=== PATIENT | female | born 1985 | race Hispanic/Latino ===

== ENCOUNTER 2017-11-29 04:10 | Emergency (ER) | payer BC, OTHER ==
[2017-11-29 04:25] VITALS: BP 127/82; PULSE 99; RESP 15; TEMP 99; O2SAT 97
--- NOTE | 2017-11-29 04:43 | ED PDOC ---
HPI: Abdomen Time Seen by Provider: 11/29/17 04:30 Chief Complaint (Nursing): GI Problem Chief Complaint (Provider): constipation History Per: Patient History/Exam Limitations: no limitations Onset/Duration Of Symptoms: Days (2) Current Symptoms Are (Timing): Still Present Additional Complaint(s): 32 y/o female presents for evaluation of constipation x 2 days. Patient states she usually has bowel movements every day, states since yesterday she feels the urge that she has to have a bowel movement but then has too much pain in rectal area to push. Patient tried Ducolax and a stool softener at 20:30 last night and ate prunes without success. DEnies fever, nausea/vomiting, abdominal pain, recent travel, changes in diet. Past Medical History Reviewed: Historical Data, Nursing Documentation, Vital Signs Vital Signs: Last Vital Signs Temp 99 F 11/29/17 04:23 Pulse 99 H 11/29/17 04:23 Resp 15 11/29/17 04:23 BP 127/82 11/29/17 04:23 Pulse Ox 97 11/29/17 05:18 - Medical History PMH: No Chronic Diseases - Surgical History Surgical History: No Surg Hx - Family History Family History: States: No Known Family Hx - Home Medications Home Medications: Ambulatory Orders Medication Instructions Recorded Polyethylene Glycol 3350 [Miralax] 17 gm PO DAILY PRN #5 powd.pack 11/29/17 - Allergies Allergies/Adverse Reactions: Allergies Allergy/AdvReac Type Severity Reaction Status Date / Time amoxicillin Allergy RASH Verified 11/29/17 04:23 Penicillins Allergy RASH Verified 11/29/17 04:23 Review of Systems ROS Statement: Except As Marked, All Systems Reviewed And Found Negative Gastrointestinal: Positive for: Abdominal Pain, Constipation Physical Exam - Reviewed Nursing Documentation Reviewed: Yes Vital Signs Reviewed: Yes - Physical Exam Appears: Positive for: Well, Non-toxic, Uncomfortable Head Exam: Positive for: ATRAUMATIC, NORMAL INSPECTION, NORMOCEPHALIC Cardiovascular/Chest: Positive for: Regular Rate, Rhythm Respiratory: Positive for: Normal Breath Sounds Gastrointestinal/Abdominal: Positive for: Bowel Sounds, Soft, Tenderness (lower abdominal discomfort) Back: Positive for: Normal Inspection Extremity: Positive for: Normal ROM Neurologic/Psych: Positive for: Alert, Oriented (x3) - ECG O2 Sat by Pulse Oximetry: 97 - Other Rad obstructive series X-Ray: Viewed By Me X-Ray Interpretation: moderate stool throughout colon - Progress ED Course And Treament: obstructive series xray Patient given fleet enema in ED with large bowel movement shortly after Patient reports improvement Patient educated on findings, discharged with rx Miralax Advised fluids, high fiber diet Follow up PMD 2-3 days REturn precautions given Disposition - Clinical Impression Clinical Impression: Constipation - Patient ED Disposition Is Patient to be Admitted: No Counseled Patient/Family Regarding: Studies Performed, Diagnosis, Need For Followup, Rx Given - Disposition Disposition: Routine/Home Disposition Time: 05:59 Condition: IMPROVED Prescriptions: Polyethylene Glycol 3350 [Miralax] 17 gm PO DAILY PRN #5 powd.pack PRN Reason: Constipation Instructions: Constipation in Adults Forms: [facility] (Lao)
[2017-11-29] MEDS ORDERED: Hydrocortisone 2.5% (Rectal) CREAM PR STA (05:22)
--- NOTE | 2017-11-29 12:56 | RAD ---
Date of service: 11/29/2017 PROCEDURE: Radiographs of the chest and abdomen (obstructive series) HISTORY: constipation COMPARISON: None available. TECHNIQUE: AP radiograph of the chest, with upright and supine radiographs of the abdomen. FINDINGS: CHEST: Heart size appears within normal limits. No focal consolidation, significant pleural effusion, or definite pneumothorax identified.Please note that chest x-ray has limited sensitivity for the detection of pulmonary masses. ABDOMEN AND PELVIS: Nonspecific bowel gas pattern without evidence of obstruction. Moderate to severe constipation. IUD. No acute osseous abnormality is detected. IMPRESSION: Moderate to severe constipation. IUD.
== END 2017-11-29 06:17 | disposition home or self-care (01) ==
LOC: H.ER 04:10
DX: K59.00 Constipation, unspecified (principal); Z88.0 Allergy status to penicillin

== ENCOUNTER 2018-06-21 05:07 | Emergency (ER) | payer BC ==
[2018-06-21] MEDS ORDERED: Sodium Chloride 0.9% 1,000 ML IV STA ×2 (06:16→08:19)
--- NOTE | 2018-06-21 06:32 | ED PDOC ---
Syncope/Near Syncope/Dizziness Time Seen by Provider: 06/21/18 05:56 Chief Complaint (Nursing): Dizziness/Lightheaded Chief Complaint (Provider): Dizziness/Lightheaded History Per: Patient History/Exam Limitations: no limitations Onset/Duration Of Symptoms: Hrs (x 1) Current Symptoms Are (Timing): Still Present Seizure Or Post-ictal Symptoms: None Severity: Moderate Additional Complaint(s): 33 year old female with DM (type I) and recent diagnosis of vertigo presents to the ED for evaluation of dizziness, onset 1 hour prior to arrival. Patient reports an extreme bout of vertigo and describes intense room spinning causing an anxiety attack. She took 1/2 of her .25 mg Xanax with some relief. Currently, she reports nausea, dizziness, anxiety and dry mouth. Patient was started on prednisone 4 days ago by an ENT doctor which she has been taking irregularly due to concern about sugar levels and side effects. Denies vomiting, fever, chest pain and headache. PMD: none provided Past Medical History Reviewed: Historical Data, Nursing Documentation, Vital Signs Vital Signs: Last Vital Signs Temp 98.4 F 06/21/18 05:22 Pulse 106 H 06/21/18 05:22 Resp 16 06/21/18 05:22 BP 121/72 06/21/18 05:22 Pulse Ox 100 06/21/18 05:22 - Medical History PMH: Diabetes, Migraine Other PMH: vertigo - Surgical History Surgical History: No Surg Hx - Family History Family History: States: Unknown Family Hx - Social History Current smoker - smoking cessation education provided: No Alcohol: None Drugs: Denies - Home Medications Home Medications: Ambulatory Orders Medication Instructions Recorded Polyethylene Glycol 3350 [Miralax] 17 gm PO DAILY PRN #5 powd.pack 11/29/17 Meclizine [Meclizine*] 25 mg PO Q6 #30 tab 06/21/18 Metoclopramide HCl [Reglan] 10 mg PO Q6 #30 tablet 06/21/18 - Allergies Allergies/Adverse Reactions: Allergies Allergy/AdvReac Type Severity Reaction Status Date / Time amoxicillin Allergy RASH Verified 11/29/17 04:23 Penicillins Allergy RASH Verified 11/29/17 04:23 Review of Systems ROS Statement: Except As Marked, All Systems Reviewed And Found Negative Constitutional: Negative for: Fever Cardiovascular: Negative for: Chest Pain Gastrointestinal: Negative for: Vomiting Neurological: Positive for: Dizziness (vertigo). Negative for: Headache Physical Exam - Reviewed Nursing Documentation Reviewed: Yes Vital Signs Reviewed: Yes - Physical Exam Appears: Positive for: Non-toxic, No Acute Distress Head Exam: Positive for: ATRAUMATIC, NORMAL INSPECTION, NORMOCEPHALIC Skin: Positive for: Normal Color, Warm, Dry Eye Exam: Positive for: EOMI, Normal appearance, PERRL Neck: Positive for: Normal, Painless ROM, Supple Cardiovascular/Chest: Positive for: Regular Rate, Rhythm. Negative for: Murmur Respiratory: Positive for: Normal Breath Sounds. Negative for: Respiratory Distress Gastrointestinal/Abdominal: Positive for: Normal Exam, Soft. Negative for: Tenderness Back: Positive for: Normal Inspection. Negative for: L CVA Tenderness, R CVA Tenderness Extremity: Positive for: Normal ROM (x 4). Negative for: Deformity Neurological/Psych: Positive for: Awake, Alert, Normal Tone, Oriented. Negative for: Motor/Sensory Deficits - Laboratory Results Result Diagrams: 06/21/18 06:25 06/21/18 06:25 - ECG O2 Sat by Pulse Oximetry: 100 (RA) Pulse Ox Interpretation: Normal Medical Decision Making Medical Decision Makin:16 Impression: 33 year old female with vertiginous dizziness and nausea Initial Plan: --CBC --CMP --EKG --Urine preg --Urine dip --NS IV 1,000 mls --Reglan 10 mg IVPB --Antivert 25 mg PO --Infectious [place] --Rapid strep 07:00 Patient signed out to Dr. Edwards pending ER workup, re-evaluation and final disposition. Scribe Attestation: Documented by Erika Marcelo, acting as a scribe Kristyn Eagle MD Provider Scribe Attestation: All medical record entries made by the Scribe were at my direction and personally dictated by me. I have reviewed the chart and agree that the record accurately reflects my personal performance of the history, physical exam, medical decision making, and the department course for this patient. I have also personally directed, reviewed, and agree with the discharge instructions and disposition Disposition - Clinical Impression Clinical Impression: Vertigo - Patient ED Disposition Is Patient to be Admitted: Transfer of Care - Disposition Disposition: Transfer of Care Disposition Time: 07:00 Condition: FAIR Additional Instructions: Follow up with ENT and video network engineer for dizziness. Continue to take diabetes medications as prescribed by your primary doctors and monitor blood sugar lev els. Prescriptions: Meclizine [Meclizine*] 25 mg PO Q6 #30 tab Metoclopramide HCl [Reglan] 10 mg PO Q6 #30 tablet Instructions: Dizziness, Nonvertigo, (DC) Forms: [facility] (Indonesian) Print Language: SURINAMESE Patient Signed Over To: Francy Edwards Handoff Comments: pending full ER workup, re-evaluation and final dispo
[2018-06-21 06:33] LABS: BASO # 0.1 K/uL (0.0-0.2); BASO % 0.4 % (0.0-2.0); EOS % 0.2 % (0.0-4.0); HEMOGLOBIN 14.2 g/dL (12.0-16.0); LYMPH # 1.2 K/uL (1.0-4.3); LYMPH % 9.5 % (20.0-40.0); MEAN CELL VOLUME 89.2 fl (81.0-99.0); MEAN CORPUSCULAR HEMOGLOBIN 29.8 pg (27.0-31.0); MEAN CORPUSCULAR HGB CONC 33.4 g/dL (33.0-37.0); MEAN PLATELET VOLUME 7.9 fl (7.2-11.7); MONO # 0.8 K/uL (0.0-0.8); MONO % 6.5 % (0.0-10.0); NEUT # 10.4 K/uL (1.8-7.0); NEUT % 83.4 % (50.0-75.0); NRBC % 0.3 % (0.0-0.0); PLATELET COUNT 322 K/uL (130-400); RBC 4.75 Mil/uL (3.80-5.20); RED CELL DISTRIBUTION WIDTH 12.2 % (11.5-14.5); WHITE BLOOD COUNT 12.4 K/uL (4.8-10.8)
[2018-06-21 07:02] LABS: ALB/GLOB RATIO 1.2 (1.0-2.1); ALBUMIN 4.4 g/dL (3.5-5.0); ALT/SGPT 22 U/L (9-52); AST/SGOT 18 U/L (14-36); BLOOD UREA NITROGEN 16 mg/dl (7-17); CALCIUM 9.5 mg/dL (8.4-10.2); GFR NON-AFRICAN AMERICAN > 60
--- NOTE | 2018-06-21 07:13 | ED PDOC ---
- Laboratory Results Result Diagrams: 06/21/18 06:25 06/21/18 06:25 Lab Results: Total Bilirubin 0.6 mg/dl (0.2-1.3) 06/21/18 06:25 AST 18 U/L (14-36) 06/21/18 06:25 ALT 22 U/L (9-52) 06/21/18 06:25 Alkaline Phosphatase 55 U/L (38-126) 06/21/18 06:25 Total Protein 7.9 G/DL (6.3-8.2) 06/21/18 06:25 Albumin 4.4 g/dL (3.5-5.0) 06/21/18 06:25 Globulin 3.5 gm/dL (2.2-3.9) 06/21/18 06:25 Albumin/Globulin Ratio 1.2 (1.0-2.1) 06/21/18 06:25 - ECG O2 Sat by Pulse Oximetry: 100 (RA) Pulse Ox Interpretation: Normal Medical Decision Making Medical Decision Making: Time: 7:00 Patient was signed out to me by Dr. Eagle pending followup on labs and reevaluation for improvement in vertigo, likely discharge home. - Scribe Attestation: Documented by Liset Gamez, acting as a scribe for Francy Edwards MD. Provider Scribe Attestation: All medical record entries made by the Scribe were at my direction and personally dictated by me. I have reviewed the chart and agree that the record accurately reflects my personal performance of the history, physical exam, medical decision making, and the department course for this patient. I have also personally directed, reviewed, and agree with the discharge instructions and disposition. Disposition - Disposition Forms: [employer] (Sao Tomean)
[2018-06-21 09:24] VITALS: BP 120/58; RESP 18; TEMP 98.5
[2018-06-21 09:57] VITALS: PULSE 88
[2018-06-21 10:00] LABS: BANDS 1 % (0-2); LYMPHOCYTE 6 % (20-50); MONOCYTE 5 % (0-10); NEUTROPHIL 88 % (42-75); TOTAL CELLS COUNTED 100
[2018-06-21 10:01] LABS: PLATELET ESTIMATE NORMAL (NORMAL)
[2018-06-28 21:47] VITALS: O2SAT 100
== END 2018-06-21 09:56 | disposition home or self-care (01) ==
LOC: H.ER 05:07
DX: R55 Syncope and collapse (principal); R42 Dizziness and giddiness; E11.9 Type 2 diabetes mellitus without complications; Z79.899 Other long term (current) drug therapy; Z88.0 Allergy status to penicillin
CPT/HCPCS: 80053; 81025; 82948; 85025; 86308; 87070; 87430; 96361; 96374; 99284; J2765; J7030

== ENCOUNTER 2018-08-07 19:31 | Emergency (ER) | payer BC ==
[2018-08-07 19:59] VITALS: BP 128/73; PULSE 79; RESP 16; TEMP 98.4; O2SAT 98
--- NOTE | 2018-08-07 21:44 | ED PDOC ---
Lower Extremity Pain/Injury Time Seen by Provider: 08/07/18 20:06 Chief Complaint (Nursing): Lower Extremity Problem/Injury Chief Complaint (Provider): Lower Extremity Injury History Per: Patient History/Exam Limitations: no limitations Onset/Duration Of Symptoms: Hrs Additional Complaint(s): 33 year old female accompanied by mother presents to ED with whole body pain sustained from fall in restaurant. Patient slipped on wet floor while coming out of bathroom x3 hours. She fell on knees first and then her chin and maybe her head. Patient does not believe she had LOC since she was able to get up right away but she is still anxious because her whole body aches. Apparently no one witnessed the fall. She is concerned about her neck pain, dizziness although her knee pain and wrist pain has resolved. PMD: in [facility] Past Medical History Reviewed: Historical Data, Nursing Documentation, Vital Signs Vital Signs: Last Vital Signs Temp 98.4 F 08/07/18 19:55 Pulse 79 08/07/18 19:55 Resp 16 08/07/18 19:55 BP 128/73 08/07/18 19:55 Pulse Ox 98 08/07/18 19:55 Primary Care Provider: FAMILY PROVIDER,NO - Medical History PMH: Diabetes, Migraine - Surgical History Surgical History: No Surg Hx - Family History Family History: States: Unknown Family Hx - Home Medications Home Medications: Ambulatory Orders Medication Instructions Recorded Polyethylene Glycol 3350 [Miralax] 17 gm PO DAILY PRN #5 powd.pack 11/29/17 Meclizine [Meclizine*] 25 mg PO Q6 #30 tab 06/21/18 Metoclopramide HCl [Reglan] 10 mg PO Q6 #30 tablet 06/21/18 Ibuprofen [Motrin] 600 mg PO Q6H PRN #20 tab 08/07/18 - Allergies Allergies/Adverse Reactions: Allergies Allergy/AdvReac Type Severity Reaction Status Date / Time amoxicillin Allergy RASH Verified 08/07/18 19:55 Penicillins Allergy RASH Verified 08/07/18 19:55 Review of Systems ROS Statement: Except As Marked, All Systems Reviewed And Found Negative Constitutional: Positive for: Malaise (whole body aches) Musculoskeletal: Positive for: Neck Pain. Negative for: Other (knee and wrist pain resolved) Neurological: Positive for: Dizziness. Negative for: Other (no LOC) Physical Exam - Reviewed Nursing Documentation Reviewed: Yes Vital Signs Reviewed: Yes - Physical Exam Appears: Positive for: Well, No Acute Distress Head Exam: Positive for: ATRAUMATIC, NORMOCEPHALIC Skin: Positive for: Normal Color, Warm, Dry Eye Exam: Positive for: EOMI, Normal appearance, PERRL ENT: Positive for: Normal ENT Inspection Neck: Negative for: Normal (mild neck pain) Cardiovascular/Chest: Positive for: Regular Rate, Rhythm. Negative for: Murmur Respiratory: Positive for: Normal Breath Sounds. Negative for: Respiratory Distress Gastrointestinal/Abdominal: Positive for: Normal Exam, Soft. Negative for: Tenderness Back: Positive for: Normal Inspection. Negative for: L CVA Tenderness, R CVA Tenderness, Vertebral Tenderness Extremity: Positive for: Normal ROM. 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 Negative for: Motor/Sensory Deficits, Facial Droop - ECG O2 Sat by Pulse Oximetry: 98 (RA) Pulse Ox Interpretation: Normal Medical Decision Making Medical Decision Making: Time: 2109 Initial Impression: sp trip and fall with dizziness rule out intracranial bleed Initial Plan: --CT (Head, Cervical Spine --Flexeril 10 mg PO --Motrin [address] Head without IV contrast FINDINGS: BRAIN: No acute intraparenchymal hemorrhage. No mass lesion. No CT evidence for acute territorial infarct. No midline shift or extra-axial collections. VENTRICLES: No hydrocephalus. ORBITS: The orbits are unremarkable. SINUSES AND MASTOIDS: The paranasal sinuses and mastoid air cells are clear. BONES: No fracture. SOFT TISSUES: Unremarkable. IMPRESSION: No acute intracranial abnormality. 2133 CT Cervical Spine without IV contrast FINDINGS: ALIGNMENT: Bony alignment is anatomic. DEGENERATIVE CHANGES: No significant canal stenosis or neural foraminal narrowing evident. SOFT TISSUES: The prevertebral soft tissues are within normal limits. BONES: A subtle oblique hairline fracture traverses the base of the odontoid process seen in the sagittal reconstructed images; specifically image 47/108. IMPRESSION: A subtle oblique hairline fracture traverses the base of the odontoid process as described above. 2139 Call to neurosurgery 2199 Dr Jc called back, states he is not sure he appreciates that fracture but regardless treatment is the same. hard neck collar and outpt follow up with their office within one week 25[address] of CT scan given to pt as well as per patient request pt reevaluated, neurologically intact. stable gait. c collar placed. Scribe Attestation: Documented by Michael Farmer acting as a scribe for Gillian Emanuel MD. Provider Scribe Attestation: All medical record entries made by the Scribe were at my direction and personally dictated by me. I have reviewed the chart and agree that the record accurately reflects my personal performance of the history, physical exam, medical decision making, and the department course for this patient. I have also personally directed, reviewed, and agree with the discharge instructions and disposition. Disposition - Clinical Impression Clinical Impression: Neck pain, Fall - Patient ED Disposition Is Patient to be Admitted: No Counseled Patient/Family Regarding: Studies Performed, Diagnosis, Need For Followup - Disposition Referrals: [employer] [facility] [Outside] Juan Jc MD [Staff Provider] - Disposition: Routine/Home Disposition Time: 22:15 Condition: IMPROVED Additional Instructions: follow up with neurosurgeon within one week take motrin as needed for pain Prescriptions: Ibuprofen [Motrin] 600 mg PO Q6H PRN #20 tab PRN Reason: Pain, Moderate (4-7) Instructions: Neck Pain, Getting Up From a Fall, Cervical Immobilizers Forms: [employer] (Greek), [facility] ED School/Work Excuse
--- NOTE | 2018-08-08 12:12 | CT ---
Date of service: 08/07/2018 PROCEDURE: CT HEAD WITHOUT CONTRAST. HISTORY: headache, fall COMPARISON: None available. TECHNIQUE: Axial computed tomography images were obtained through the head/brain without intravenous contrast. Supplemental Coronal and Sagittal projections created and reviewed. Radiation dose: Total exam DLP = 813.33 mGy-cm. This CT exam was performed using one or more of the following dose reduction techniques: Automated exposure control, adjustment of the mA and/or kV according to patient size, and/or use of iterative reconstruction technique. FINDINGS: HEMORRHAGE: No intracranial hemorrhage. BRAIN: No mass effect or edema. No atrophy or chronic microvascular ischemic changes. VENTRICLES: Unremarkable. No hydrocephalus. CALVARIUM: Unremarkable. PARANASAL SINUSES: Unremarkable as visualized. No significant inflammatory changes. MASTOID AIR CELLS: Unremarkable as visualized. No inflammatory changes. OTHER FINDINGS: None. IMPRESSION: No acute intracranial abnormalities. No significant findings to account for the clinical presentation. Concordant results (preliminary interpretation) provided by [employer] [facility]. Procedure Completed: 21:11. Preliminary Report: Interpreted and electronically signed: 21:32. Final Interpretation: 12:08. August 08, 2018.
--- NOTE | 2018-08-08 12:45 | CT ---
Date of service: 08/07/2018 PROCEDURE: CT Cervical Spine without contrast HISTORY: neck pain sp fall COMPARISON: None available. TECHNIQUE: Axial computed tomography images were obtained of the cervical spine without the use of intravenous contrast. Coronal and sagittal reformatted images were created and reviewed. Radiation dose: Total exam DLP = 282.23 mGy-cm. This CT exam was performed using one or more of the following dose reduction techniques: Automated exposure control, adjustment of the mA and/or kV according to patient size, and/or use of iterative reconstruction technique. FINDINGS: VERTEBRAE: A small feeding vessel is identified entering the base of the odontoid process from a posterior approach with no definite fracture appreciated throughout the C2 vertebral body including the odontoid process. There is a reversal of cervical curvature. No destructive bony lesion. DISCS/SPINAL CANAL/NEURAL FORAMINA: No significant central canal or neural foraminal stenosis. Discs heights are grossly preserved. PARASPINAL SOFT TISSUES: Unremarkable. OTHER FINDINGS: None. IMPRESSION: Mild reversal of cervical curvature is identified without definite acute fracture or spondylolisthesis appreciated. A feeding vessel is seen at the midline base of the odontoid process best appreciated in sagittal reconstructed dataset. Findings have been discussed with Dr. Jc with written down and read back verification 08/08/2018, 11:54 a.m.. Discordant preliminary report from [facility] dated 08/07/2018, 9:34 p.m., which states fracture at the odontoid process base and does not report reversal cervical curvature.
== END 2018-08-07 22:17 | disposition home or self-care (01) ==
LOC: H.ER 19:31
DX: M54.2 Cervicalgia (principal); W01.0XXA Fall on same level from slipping, tripping and stumbling without subsequent striking against object, initial encounter; Y92.511 Restaurant or cafe as the place of occurrence of the external cause; E11.9 Type 2 diabetes mellitus without complications; Z88.0 Allergy status to penicillin